=== PATIENT | female | born 2000 | race Caucasian/White ===

== ENCOUNTER 2022-05-28 07:18 | Emergency (ER) | payer OTHER ==
[~2022-05-28] VITALS: Ht 170.2 cm; Wt 49.6 kg
[2022-05-28 07:21] VITALS: BP 102/64
--- NOTE | 2022-05-28 07:32 | NUR ---
PT AMBULATED TO BED 9 WITH STEADY GAIT
--- NOTE | 2022-05-28 07:34 | NUR ---
21 Y/O FEMALE BIB SELF C/O ABD PAIN RADIATING FROM THE RUQ TO RLQ ABDOMINAL PAIN X 3 DAYS. DENIES ANY NVD, FEVERS, CHILLS. LAST BM NORMAL TODAY. SEEN AT [facility] YESTERDAY, US DONE, NEGATIVE, DENIES ANY URINARY S/S. RX OF NORCO AND ZOFRAN BY [facility], PT STATES THAT SHE HASNT TAKEN MEDICATION/PICKED UP MEDICATION. STATES THAT PAIN IS DIFFERENT FROM HER USUAL IBS FLARE-UP. PMH: IBS
[2022-05-28] MEDS ORDERED: KETOROLAC 15 MG/ML VIAL IVP ONE (07:45)
--- NOTE | 2022-05-28 07:50 | NUR ---
DR CASEY AT BEDSIDE FOR EVAL
--- NOTE | 2022-05-28 08:06 | NUR ---
URINE AND BLOOD WALKED TO LAB
[2022-05-28] MEDS ORDERED: DICYCLOMINE 10 MG CAP PO ONE (08:10)
[2022-05-28] MEDS ORDERED: METOCLOPRAMIDE 10 MG/2 ML INJ VIAL IVP ONE (08:10)
[2022-05-28 08:20] LABS: APPEARANCE,URINE CLEAR (CLEAR); BILIRUBIN,URINE NEGATIVE (NEGATIVE); BLOOD, URINE NEGATIVE (NEGATIVE); COLOR,URINE YELLOW (YELLOW); LEUKOCYTE ESTERASE ,URINE NEGATIVE (NEGATIVE); NITRITE, URINE NEGATIVE (NEGATIVE); PH,URINE 7.5 (5.0-9.0); UGLUCOSE NEGATIVE (NEGATIVE)
[2022-05-28 08:33] LABS: ALBUMIN 3.6 g/dL (3.4-5.0); ANION GAP 10.6 (8-16); CARBON DIOXIDE 31.4 mmol/L (21-32); CREATININE 0.7 mg/dL (0.6-1.3); TOTAL BILIRUBIN 0.1 mg/dL (0.0-1.0)
[2022-05-28 08:40] LABS: BASOPHILS % (AUTO) 0.2 % (0.0-2.0); EOSINOPHILS # (AUTO) 0.4 K/uL (0-0.4); EOSINOPHILS % (AUTO) 4.2 % (0.0-4.0); HEMATOCRIT 37.5 % (36-48); HEMOGLOBIN 11.5 g/dL (12.0-16.0); LYMPHOCYTES # (AUTO) 1.8 K/uL (2.5-16.5); LYMPHOCYTES % (AUTO) 18.4 % (20.5-51.1); MEAN CORPUSCULAR HEMOGLOBIN 21 pg (27-31); MEAN CORPUSCULAR HGB CONC 31 g/dL (33-37); MEAN CORPUSCULAR VOLUME 69.4 fL (80-94); MONOCYTES # (AUTO) 0.6 K/uL (0.8-1.0); MONOCYTES % (AUTO) 6.2 % (1.7-9.3); NEUTROPHILS # (AUTO) 6.8 K/uL (1.8-7.7); PLATELET COUNT (AUTO) 408 K/uL (140-450); RED BLOOD CELL COUNT(AUTO) 5.39 MIL/uL (4.20-5.40); RED CELL DISTRIBUTION WIDTH 15.6 % (11.6-13.7); WHITE BLOOD COUNT (AUTO) 9.5 K/uL (4.5-11.0)
[2022-05-28] MEDS ORDERED: METR-435 PO (12:21)
[2022-05-28] MEDS ORDERED: CIPR500T4 PO (12:21)
[2022-05-28] MEDS ORDERED: BEN10 PO (12:21)
[2022-05-28 12:30] VITALS: BP 96/63
--- NOTE | 2022-05-28 12:30 | NUR ---
Patient discharged with v/s stable. Written and verbal after care instructions ABOUT COLITIS AND ABD PAIN given and explained. Patient alert, oriented and verbalized understanding of instructions. Ambulatory with steady gait. All questions addressed prior to discharge. ID band removed. Patient advised to follow up with PMD. Rx of CIPRO, METRONIDAZOLE, BENTYL given. Patient educated on indication of medication including possible reaction and side effects. Opportunity to ask questions provided and answered.
== END 2022-05-28 12:30 | disposition home or self-care (01) ==
LOC: MED 07:18
DX: K56.7 Ileus, unspecified (principal)
CPT/HCPCS: 36415; 74177; 80053; 81003; 81025; 83690; 85025; 96374; 99285; J1885; Q9967

== ENCOUNTER 2022-12-29 03:28 | Emergency (ER) | payer OTHER ==
[~2022-12-29] VITALS: Ht 170.2 cm; Wt 49.9 kg
[~2022-12-29 03:28] MED LIST: BEN10 PO; CIPR500T4 PO; METR-435 PO
[2022-12-29 03:30] VITALS: BP 124/73; RESP 24; TEMP 97.4; O2SAT 100
[2022-12-29] MEDS ORDERED: PROPOFOL 200 MG/20 ML VIAL IV ONE (05:15)
[2022-12-29 05:23] VITALS: O2SAT 95
[2022-12-29] MEDS ORDERED: NAPR-54 PO (05:23)
[2022-12-29 05:35] VITALS: BP 114/83; PULSE 99; RESP 24; TEMP 97.4; O2SAT 95
== END 2022-12-29 05:35 | disposition home or self-care (01) ==
LOC: MED 03:28
DX: S52.591A Other fractures of lower end of right radius, initial encounter for closed fracture (principal); F10.129 Alcohol abuse with intoxication, unspecified; F12.90 Cannabis use, unspecified, uncomplicated; Z79.899 Other long term (current) drug therapy; W19.XXXA Unspecified fall, initial encounter; Y93.89 Activity, other specified; Y92.89 Other specified places as the place of occurrence of the external cause; Y99.8 Other external cause status
CPT/HCPCS: 25605; 73110; 99152; 99285; Q0092

== ENCOUNTER 2023-08-04 13:45 | Emergency (ER) | payer SELFPAY ==
[~2023-08-04] VITALS: Ht 167.6 cm; Wt 52.2 kg
[~2023-08-04 13:45] MED LIST changes: +NAPR-337 PO
[2023-08-04 13:50] VITALS: BP 102/60; PULSE 69; RESP 18; TEMP 97.8; O2SAT 100
[2023-08-04] MEDS: ONDANSETRON 4 MG ODT PO ONE (16:13)
[2023-08-04] MEDS: MORPHINE SULFATE 4 MG/ML SYR IM ONE (16:13)
[2023-08-04 16:22] VITALS: TEMP 98.2
[2023-08-04 16:37] LABS: APPEARANCE,URINE CLEAR (CLEAR); BILIRUBIN,URINE NEGATIVE (NEGATIVE); BLOOD, URINE NEGATIVE (NEGATIVE); COLOR,URINE YELLOW (YELLOW); LEUKOCYTE ESTERASE ,URINE NEGATIVE (NEGATIVE); NITRITE, URINE NEGATIVE (NEGATIVE); PROTEIN,URINE NEGATIVE (NEGATIVE); UGLUCOSE NEGATIVE (NEGATIVE)
[2023-08-04 16:58] LABS: BASOPHILS % (AUTO) 0.5 % (0.0-2.0); EOSINOPHILS # (AUTO) 0.1 K/uL (0-0.4); EOSINOPHILS % (AUTO) 1.3 % (0.0-4.0); HEMATOCRIT 40.1 % (36-48); HEMOGLOBIN 12.8 g/dL (12.0-16.0); LYMPHOCYTES # (AUTO) 1.7 K/uL (2.5-16.5); LYMPHOCYTES % (AUTO) 23.9 % (20.5-51.1); MEAN CORPUSCULAR HEMOGLOBIN 23 pg (27-31); MEAN CORPUSCULAR HGB CONC 32 g/dL (33-37); MONOCYTES # (AUTO) 0.6 K/uL (0.8-1.0); MONOCYTES % (AUTO) 8.1 % (1.7-9.3); NEUTROPHILS # (AUTO) 4.7 K/uL (1.8-7.7); NEUTROPHILS % (AUTO) 66.2 % (42.2-75.2); PLATELET COUNT (AUTO) 263 K/uL (140-450); RED BLOOD CELL COUNT(AUTO) 5.58 MIL/uL (4.20-5.40); RED CELL DISTRIBUTION WIDTH 16.5 % (11.6-13.7); WHITE BLOOD COUNT (AUTO) 7.1 K/uL (4.5-11.0)
[2023-08-04 17:04] LABS: ANION GAP 12.6 (8-16); CALCIUM 8.7 mg/dL (8.5-10.1); CARBON DIOXIDE 27.2 mmol/L (21-32); CREATININE 0.8 mg/dL (0.6-1.3); POTASSIUM 3.8 mmol/L (3.5-5.1)
[2023-08-04 17:19] LABS: ALBUMIN 3.9 g/dL (3.4-5.0); BILIRUBIN,DIRECT 0.1 mg/dL (0.0-0.3); TOTAL BILIRUBIN 0.4 mg/dL (0.0-1.0); TOTAL PROTEIN, SERUM 7.6 g/dL (6.4-8.2)
[2023-08-04] MEDS ORDERED: IBUP-2213 PO (17:53)
[2023-08-04] MEDS ORDERED: ACET-8905 PO (17:53)
[2023-08-04] MEDS ORDERED: ONDA8TAB87 PO (17:53)
[2023-08-04 18:05] VITALS: BP 114/74; PULSE 84; RESP 16; O2SAT 99
== END 2023-08-04 18:05 | disposition home or self-care (01) ==
LOC: MED 13:45
DX: R10.31 Right lower quadrant pain (principal); R11.0 Nausea; F12.90 Cannabis use, unspecified, uncomplicated; Z98.890 Other specified postprocedural states; Z79.899 Other long term (current) drug therapy
CPT/HCPCS: 36415; 74176; 80048; 80076; 81003; 81025; 83690; 85025; 96372; 99285; J2270; Q0162